=== PATIENT | female | born 1930 | race Caucasian/White ===

== ENCOUNTER 2019-04-25 13:05 | Emergency (ER) | payer OTHER ==
[~2019-04-25] VITALS: Ht 157.5 cm; Wt 65.8 kg
[2019-04-25 13:05] VITALS: BP 177/65
[2019-04-25] MEDS ORDERED: KETOROLAC 30 MG/ML VIAL IM ONE (13:15)
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
--- NOTE | 2019-04-25 13:50 | NUR ---
patient returned from x ray
--- NOTE | 2019-04-25 14:03 | NUR ---
Patient being reevaluated by dr flores at bedside.
[2019-04-25 14:12] VITALS: BP 150/68
--- NOTE | 2019-04-25 14:12 | NUR ---
Patient discharged with bp 150/68 denies headache at this time. Written and verbal after care instructions given and explained. Patient alert, oriented and verbalized understanding of instructions. Ambulatory with steady gait. All questions addressed prior to discharge. ID band removed. Patient advised to follow up with PMD. Rx of motrin given. Patient educated on indication of medication including possible reaction and side effects. Opportunity to ask questions provided and answered.
== END 2019-04-25 14:12 | disposition home or self-care (01) ==
LOC: MED 13:05
DX: R07.89 Other chest pain (principal); M54.9 Dorsalgia, unspecified; V89.2XXA Person injured in unspecified motor-vehicle accident, traffic, initial encounter; Y93.89 Activity, other specified; Y92.89 Other specified places as the place of occurrence of the external cause; Y99.8 Other external cause status
CPT/HCPCS: 71046; 96372; 99283; J1885